=== PATIENT | female | born 1935 | race Caucasian/White ===

== ENCOUNTER 2023-02-17 17:27 | Inpatient (IN) | payer OTHER, MEDICARE ==
[~2023-02-17] VITALS: Ht 160 cm; Wt 93.1 kg
[2023-02-17 23:19] LABS: BASOPHILS ABSOLUTE AUTO 0.04 K/mm3 (0.00-0.23); BASOPHILS PERCENT AUTO 1 % (0-2); EOSINOPHILS ABSOLUTE AUTO 0.01 K/mm3 (0.00-0.68); EOSINOPHILS PERCENT AUTO 0 % (0-6); Hemoglobin 14.1 g/dL (11.5-16.0); IMMATURE GRAN ABSOLUTE AUTO 0.01 K/mm3 (0.00-0.10); IMMATURE GRAN PERCENT AUTO 0 % (0-1); LYMPHOCYTES ABSOLUTE AUTO 1.29 K/mm3 (0.84-5.20); LYMPHOCYTES PERCENT AUTO 25 % (21-46); MONOCYTES ABSOLUTE AUTO 0.28 K/mm3 (0.16-1.47); MONOCYTES PERCENT AUTO 6 % (4-13); Mean Corpuscular HGB Conc 34.4 g/dL (31.5-36.5); Mean Corpuscular Volume 99 fL (80-100); Mean Platelet Volume 11.5 fL (9.1-12.4); NEUTROPHILS PERCENT AUTO 68 % (41-73); Platelet Count 209 K/mm3 (150-400); RDW Coefficient Variation 14.4 % (11.7-14.2); RDW Standard Deviation 52.5 fL (35.1-46.3); Red Blood Cell Count 4.15 M/mm3 (3.80-5.20); White Blood Cell Count 5.13 K/mm3 (4.00-11.30)
[2023-02-17 23:36] LABS: Albumin, Blood 3.6 g/dL (3.4-5.0); Bilirubin, Total 1.2 mg/dL (0.1-1.0); Bun/Creatinine Ratio 28.3 (12.0-20.0); Calcium, Blood 8.8 mg/dL (8.5-10.1); Creatinine, Blood 0.57 mg/dL (0.40-1.00); Globulin, Blood 3.7 g/dL (2.2-4.0); Potassium, Blood 4.1 mmol/L (3.5-5.5); Total Protein, Blood 7.3 g/dL (6.4-8.2)
[2023-02-18] VITALS (59 sets, daily range): BP systolic 93–169; BP diastolic 44–104
[2023-02-18] MEDS ORDERED: ELIQUIS5 M2 PO (03:58)
[2023-02-18] MEDS ORDERED: ACET500 PO (03:58)
[2023-02-18] MEDS ORDERED: SOLI5 PO (04:00)
[2023-02-18] MEDS ORDERED: LIOT5 PO (04:00)
[2023-02-18] MEDS ORDERED: LEVOTHYROXINE75 MC9 PO (04:01)
[2023-02-18] MEDS ORDERED: FLUDROCORTISON0.1 M1 PO (04:01)
[2023-02-18] MEDS ORDERED: OMEP20ER PO (04:02)
[2023-02-18] MEDS ORDERED: POTA10T PO (04:02)
[2023-02-18] MEDS ORDERED: MIDO5 PO (04:03)
[2023-02-18 04:43] LABS: BASOPHILS ABSOLUTE AUTO 0.02 K/mm3 (0.00-0.23); BASOPHILS PERCENT AUTO 0 % (0-2); EOSINOPHILS PERCENT AUTO 0 % (0-6); Hematocrit 36.8 % (33.0-51.0); Hemoglobin 12.8 g/dL (11.5-16.0); IMMATURE GRAN ABSOLUTE AUTO 0.02 K/mm3 (0.00-0.10); IMMATURE GRAN PERCENT AUTO 0 % (0-1); LYMPHOCYTES ABSOLUTE AUTO 0.58 K/mm3 (0.84-5.20); LYMPHOCYTES PERCENT AUTO 8 % (21-46); MONOCYTES ABSOLUTE AUTO 0.16 K/mm3 (0.16-1.47); MONOCYTES PERCENT AUTO 2 % (4-13); Mean Corpuscular HGB Conc 34.8 g/dL (31.5-36.5); Mean Corpuscular Volume 98 fL (80-100); Mean Platelet Volume 11.2 fL (9.1-12.4); NEUTROPHILS ABSOLUTE AUTO 6.61 K/mm3 (1.96-9.15); NEUTROPHILS PERCENT AUTO 89 % (41-73); Platelet Count 178 K/mm3 (150-400); RDW Coefficient Variation 14.5 % (11.7-14.2); RDW Standard Deviation 52.2 fL (35.1-46.3); Red Blood Cell Count 3.76 M/mm3 (3.80-5.20); White Blood Cell Count 7.39 K/mm3 (4.00-11.30)
[2023-02-18 04:54] LABS: Calcium, Blood 8.4 mg/dL (8.5-10.1); Creatinine, Blood 0.52 mg/dL (0.40-1.00); Potassium, Blood 3.4 mmol/L (3.5-5.5)
--- NOTE | 2023-02-18 06:27 | NUR ---
SHIFT SUMMARY PATIENT TO ICU 14 FROM ER AT 0345. PATIENT IS ALERT AND ORIENTED X4. EQUAL STRENGTH IN ALL EXTREMITIES. NO NEURO DEFICITS. PATIENT GETS NAUSEOUS AND VOMITS WITH ANY MOVEMENT, MEDICATED PER EMAR. 02 SATS 96% ON RA, DENIES SOB. HR A.FIB 100-120, MEDICATED FOR A SYSTOLIC BP >[address] ORDERS. PUREWICK IN PLACE. PATIENT TAKEN TO CT AROUND 0600. FAMILY AT BEDSIDE. CALL LIGHT IN REACH IGNITION RISK ASSESSED HOURLY, PATIENT AND FAMILY STATES UNDERSTANDING. NO RISK AT THIS TIME.
--- NOTE | 2023-02-18 07:28 | NUR ---
[place] of Care: Care assumed at 0700hr. Patient sleeping, but easily roused to verbal stimuli. Slightly drowsy when awake, oriented x4. No neurological deficits noted. Pupils equal and reactive. Strength and sensation wnl to all extremities. Denies pain other than mild headache to lt temporal region and posterior head (location of impact). NOC shift RN reports several episodes of vomiting. Patient currently not vomiting but remains nauseous. Will contact day shift hospitalist r/t adding reglan prn, patient has already received 16mg of zofran throughout the night. Purwick in place, and wnl. Peripheral IV x1 to lt arm, patent and intact. Repeat head CT at 0600hr, shows stable intracranial bleed. Family at bedside, all questions answered to satisfaction. Call light in reach. Will continue to monitor.
--- NOTE | 2023-02-18 18:26 | NUR ---
Shift Summary: No significant changes throughout remainder of shift. Patient mostly sleeping, but continues to easily rouse to verbal stimuli. Oriented x4 when awake, no neurological deficits noted, all neuro wnl. C/o headache, effectively managed with x1 prn Pruden and x1 prn tylenol. Peripheral IV x1, patent and intact. Purwick urinary device remains wnl, clear yellow urine output. Call light in reach, makes needs known. Will continue to monitor until report to NOC shift RN.
--- NOTE | 2023-02-18 20:00 | NUR ---
ASSUMED CARE ASSUMED CARE AT 1900. PT SLEEPING AT SHIFT CHANGE. APPEARS TIRED WHEN WOKEN UP FOR ASSESSMENT. A/O X 4. FOLLOWS COMMANDS. NEURO WNL BUT C/O OF HEADACHE 11/24. DENIES LIGHT SENSITIVITY BUT SQUINTS EYES WHEN LOOKING UP. HYPOTENSIVE, SBP 90-100'S. PM LOPRESSOR HELD UNTIL BP WITHIN PARAMETERS. OTHER VSS. AFIB RATE 70'S. ON RA. C/O ULQ ABD PAIN. STATES "IT FEELS LIKE AN ACHE". MEDICATED PER EMAR. PUREWICK IN PLACE. DAUGHTER AT BEDSIDE. EDUCATED ON IGNITION RISK AND THEY VERBALIZED UNDERSTANDING. CALL LIGHT IN REACH.
[2023-02-19] VITALS (24 sets, daily range): BP systolic 109–161; BP diastolic 53–95
[2023-02-19 03:36] LABS: BASOPHILS ABSOLUTE AUTO 0.04 K/mm3 (0.00-0.23); BASOPHILS PERCENT AUTO 1 % (0-2); EOSINOPHILS ABSOLUTE AUTO 0.01 K/mm3 (0.00-0.68); EOSINOPHILS PERCENT AUTO 0 % (0-6); Hematocrit 33.5 % (33.0-51.0); Hemoglobin 11.5 g/dL (11.5-16.0); IMMATURE GRAN ABSOLUTE AUTO 0.01 K/mm3 (0.00-0.10); IMMATURE GRAN PERCENT AUTO 0 % (0-1); LYMPHOCYTES ABSOLUTE AUTO 1.21 K/mm3 (0.84-5.20); LYMPHOCYTES PERCENT AUTO 27 % (21-46); MONOCYTES ABSOLUTE AUTO 0.32 K/mm3 (0.16-1.47); MONOCYTES PERCENT AUTO 7 % (4-13); Mean Corpuscular HGB Conc 34.3 g/dL (31.5-36.5); Mean Corpuscular Volume 99 fL (80-100); Mean Platelet Volume 11.4 fL (9.1-12.4); NEUTROPHILS ABSOLUTE AUTO 2.97 K/mm3 (1.96-9.15); NEUTROPHILS PERCENT AUTO 65 % (41-73); Platelet Count 182 K/mm3 (150-400); RDW Coefficient Variation 14.8 % (11.7-14.2); RDW Standard Deviation 54.2 fL (35.1-46.3); Red Blood Cell Count 3.38 M/mm3 (3.80-5.20); White Blood Cell Count 4.56 K/mm3 (4.00-11.30)
[2023-02-19 03:54] LABS: Bun/Creatinine Ratio 25.1 (12.0-20.0); Calcium, Blood 8.1 mg/dL (8.5-10.1); Creatinine, Blood 0.88 mg/dL (0.40-1.00); Potassium, Blood 4.3 mmol/L (3.5-5.5)
--- NOTE | 2023-02-19 05:58 | NUR ---
SHIFT SUMMARY NO ACUTE EVENTS T/O NIGHT. PT C/O HEADACHE T/O NIGHT -01/24 PAIN. ALSO C/O PAIN IN ABD -10/25. PT NAUSEOUS ONCE AFTER ROLLING [id number]. MEDICATED PER EMAR. VSS. NO PRN BP MEDICATIONS GIVEN. NO NEURO CHANGES. DAUGHTER AT BEDSIDE AND AT ICU LOUNGE T/O NIGHT. PUREWICK IN PLACE. CALL LIGHT IN REACH. WILL REPORT OFF TO ONCOMING RN. IGNITION RISK ASSESSED HOURLY. NO RISK AT THIS TIME.
--- NOTE | 2023-02-19 07:00 | NUR ---
ASSUME CARE: I have assumed care of this patient.
--- NOTE | 2023-02-19 12:46 | NUR ---
PT TO CT ON BED WITH TRANSPORTER
--- NOTE | 2023-02-19 12:59 | NUR ---
PT BACK FROM CT
--- NOTE | 2023-02-19 13:04 | NUR ---
PROVIDER UPDATE: Provider notified of persistent hypertension and now elevated heart rate in 120-130s. See new orders
--- NOTE | 2023-02-19 18:07 | NUR ---
SHIFT SUMMARY: Jyoti has no focal deficits on neuro exam. Repeat CT stable. She has complainined of persistant headache as well as nausea/vomiting. She was treated with several doses of PRN antiemetics with minimal relief. Ativan given once for nausea with good effect. [place] given twice for headache. Metoprolol restarted after pt needed several doses of hydralazine and heart rate began increasing. Patient able to reposition self in bed, but required frequent reminders to reposition due to nausea. Minimal PO intake, she tolerated breakfast and ice chips throughout the day. Pure wick in place; draining emmanuelle urine. Family at bedside and very supportive throughout the day. They were updated on changes at bedside. Patient and family education on risks associated ignition sources while in the hospital. Ignition sources rounded on hourly.
[2023-02-20 00:29] VITALS: BP 153/92
[2023-02-20 03:41] LABS: BASOPHILS ABSOLUTE AUTO 0.03 K/mm3 (0.00-0.23); BASOPHILS PERCENT AUTO 0 % (0-2); EOSINOPHILS ABSOLUTE AUTO 0.01 K/mm3 (0.00-0.68); EOSINOPHILS PERCENT AUTO 0 % (0-6); Hematocrit 37.7 % (33.0-51.0); Hemoglobin 12.7 g/dL (11.5-16.0); IMMATURE GRAN ABSOLUTE AUTO 0.05 K/mm3 (0.00-0.10); IMMATURE GRAN PERCENT AUTO 1 % (0-1); LYMPHOCYTES ABSOLUTE AUTO 0.86 K/mm3 (0.84-5.20); LYMPHOCYTES PERCENT AUTO 12 % (21-46); MONOCYTES ABSOLUTE AUTO 0.31 K/mm3 (0.16-1.47); MONOCYTES PERCENT AUTO 4 % (4-13); Mean Corpuscular HGB 33.4 pg (26.0-34.0); Mean Corpuscular HGB Conc 33.7 g/dL (31.5-36.5); Mean Corpuscular Volume 99 fL (80-100); Mean Platelet Volume 11.6 fL (9.1-12.4); NEUTROPHILS ABSOLUTE AUTO 6.18 K/mm3 (1.96-9.15); NEUTROPHILS PERCENT AUTO 83 % (41-73); Platelet Count 212 K/mm3 (150-400); RDW Coefficient Variation 14.8 % (11.7-14.2); RDW Standard Deviation 53.7 fL (35.1-46.3); White Blood Cell Count 7.44 K/mm3 (4.00-11.30)
[2023-02-20 03:57] LABS: Bun/Creatinine Ratio 33.8 (12.0-20.0); Calcium, Blood 8.6 mg/dL (8.5-10.1); Creatinine, Blood 0.59 mg/dL (0.40-1.00); Potassium, Blood 3.8 mmol/L (3.5-5.5)
[2023-02-20 04:53] VITALS: BP 142/93
--- NOTE | 2023-02-20 06:18 | NUR ---
SHIFT SUMMARY A/OX3, PLEASANT AND COOPERATIVE WITH CARE. N/V X1 THIS SHIFT, MEDICATED PER EMAR. DENIES HEADACHE AT THIS TIME. SPO2 >92% ON RA. TELE AFIB 90-120, DENIES CHEST PAIN/PRESSURE. PUREWICK AND ATTENDS IN PLACE. DAUGHTER AT BEDSIDE INTERMITTENTLY T/O THE NIGHT. VSS, NO ACUTE CHANGES AT THIS TIME. BED IN LOWEST POSITION WITH CALL LIGHT IN REACH. WILL CONTINUE TO MONITOR AND REPORT TO ONCOMING RN.
--- NOTE | 2023-02-20 08:14 | NUR ---
Received report from Awilda DOWD. Patient was sleeping and awakens veryiasily ot verbal stimuli. She is alert and oriented and is able to communicate simple needs with slow speech. Did Neuro check and she has fine motor skills and good stregnth in all extremities. MEAW. She has 20ga IV in LW and is flushed and SL'd. She has pure wick in place with adequet yellow urine output. She states not able to eat currently as she is spitting up and belching. Daughter at bedside and have answered question with some repitition.
--- NOTE | 2023-02-20 11:30 | NUR ---
Patient has been sleepin intermitently with alot of family present in room . She continues to not want to eat, but accepted ice tea. VSS, See EMR. No changes to neuro and needs minimal assist to reposition. Dr Nixon has been by to assess and has made her Med no tele. MAEW. Purewick remains in place with yellow urine output. Different family members at bedside . Patient denies any current needs.
[2023-02-20 11:43] VITALS: BP 154/80
--- NOTE | 2023-02-20 17:01 | NUR ---
[facility] Therapist by and worked with patient and up in chair and tolerated well. She states feels like she is unsteady on feet but does well. She is on Rqa and sats >90%. Maew but slow. She is able to ocmmunicate simple needs. She has been sleeping alot and family has been in and out keeping awake while they are here. VSS, See EMR. No changes with earlier neuro checks and is able to follow commands with extremity checks. She is awaiting room for Med [email or web address] tele.
--- NOTE | 2023-02-20 18:13 | NUR ---
Patient continues up in chair and has small apetite and is eating small ampount of dinner. We are going to put back in bed with two staff. She is on RA and sats >90%. She deies any scurrent needs. Pollyck still inplace and emptied 700 ml yellow urine. Contubes to MAEW and no deficits other than slow speech that family states in normal.
[2023-02-20 20:07] VITALS: BP 140/99
[2023-02-20 23:26] VITALS: BP 157/81
[2023-02-21 03:12] VITALS: BP 159/89
--- NOTE | 2023-02-21 06:05 | NUR ---
PT AOX4. FOLLOWS COMMANDS AND MOVES ALL EXTREMITIES WITH EQUAL STRENGTH. GENERALIZED WEAKNESS. NOT ON TELEMETRY. ROOM AIR. TOLERATING DIET WITHOUT NAUSEA. PUREWICK IN PLACE.
--- NOTE | 2023-02-21 07:15 | NUR ---
CARE ASSUMPTION DURING BEDSIDE SHIFT REPORT Rafael COOK RN THE PT IS LYING IN BED ASLEEP ON RM AIR. PT APPEARS COMFORTABLE IN NO DISTRESS. PT'S DAUGHTER ENTERING THE RM AT THIS TIME.
[2023-02-21 09:02] VITALS: BP 136/79
--- NOTE | 2023-02-21 15:00 | NUR ---
ASSUMED CARE OF PATIENT UPON HER TRANSFER FROM PCU AT 1130, ARRIVED BY W/C. TRANSFERRED TO BED WITH 1 PERSON ASSIST, ACCOMPANIED BY DAUGHTER. A&O X 3, PLEASANT. DENIED NAUSEA BUT ENDORSED MILD CONTRERAS, HAD BEEN MEDICATED JUST PRIOR TO TRANSFER. PT EDUCATED ABOUT FALL PRECAUTIONS, BED ALARM ON. EDUCATED ABOUT CALL LIGHT, PAIN MANAGEMENT. HAS NO INCENDIARY DEVICES IN HER POSSESSION.
[2023-02-21] MEDS ORDERED: DOCUZEN 8.6-501 EACH PO (16:34)
[2023-02-21] MEDS ORDERED: Lopressor 25 mg25 MG PO (16:35)
== END 2023-02-21 17:02 | disposition home health service (06) | DRG 86 ==
LOC: ER 17:27 → ICUE 17:28 → PCU 02-19 21:00 → MEDS 02-21 12:02 → ENPENDDIS 02-21 15:20 → MEDS 02-21 17:02
PROVIDERS: Emergency Medicine; Family Medicine; Internal Medicine; ADMIT Internal Medicine
PROC: 30283B1 Transfusion of Nonautologous 4-Factor Prothrombin Complex Concentrate into Vein, Percutaneous Approach (ICD-10-PCS; principal; 2023-02-18)
DX: S06.5X0A Traumatic subdural hemorrhage without loss of consciousness, initial encounter (principal); E27.40 Unspecified adrenocortical insufficiency; E87.1 Hypo-osmolality and hyponatremia; I48.20 Chronic atrial fibrillation, unspecified; Z66 Do not resuscitate; R40.2412 Glasgow coma scale score 13-15, at arrival to emergency department; E87.6 Hypokalemia; I10 Essential (primary) hypertension; W01.198A Fall on same level from slipping, tripping and stumbling with subsequent striking against other object, initial encounter; Z96.653 Presence of artificial knee joint, bilateral; Z96.641 Presence of right artificial hip joint; Z88.2 Allergy status to sulfonamides; Z88.8 Allergy status to other drugs, medicaments and biological substances; Z79.01 Long term (current) use of anticoagulants
CPT/HCPCS: 36415; 70450; 70496; 70498; 72125; 80048; 80053; 82947; 84484; 85025; 93005; 93010; 94760; 96365; 96367; 96375; 96376; 97110; 97162; 97530; 99285-25; A9270; C9113; G0378; J0360; J1953; J2060; J2405; J2765; J3010; J3480; J7050; J7168; Q9967